=== PATIENT | male | born 1995 | race African-American/Black ===

== ENCOUNTER 2018-06-18 18:12 | Emergency (ER) | payer SELFPAY ==
--- NOTE | 2018-06-18 19:39 | UC ---
Skin Complaint HPI - HPI Summary HPI Summary: 23-year-old male presents with onset of pruritic rash to his upper legs, abdomen , and back. States he woke up with the rash yesterday morning. He has used a topical steroid cream and states that the symptoms have improved some. Denies swelling of his lips, tongue, throat, difficulty breathing, changes in medications, diet, soaps, shampoos, detergents, lotions, colognes, deodorants, or known contact with environmental irritants. - History of Current Complaint Chief Complaint: UCSkin Time Seen by Provider: 06/18/18 19:37 Stated Complaint: RASH Hx Obtained From: Patient Pain Intensity: 0 - Allergy/Home Medications Allergies/Adverse Reactions: Allergies Allergy/AdvReac Type Severity Reaction Status Date / Time No Known Allergies Allergy Unverified 03/30/14 20:06 PMH/Surg Hx/FS Hx/Imm Hx Previously Healthy: Yes - Denies signifcant PMH - Surgical History Surgical History: None Surgery Procedure, Year, and Place: Back surgery - Social History Occupation: Student Lives: Dormitory/Roommates Alcohol Use: Occasionally Substance Use Type: Marijuana Smoking Status (MU): Never Smoked Tobacco - Immunization History Vaccination Up to Date: Yes Review of Systems All Other Systems Reviewed And Are Negative: Yes Constitutional: Negative: Fever, Chills Skin: Positive: Rash Eyes: Positive: Negative ENT: Positive: Negative Respiratory: Negative: Shortness Of Breath, Cough Cardiovascular: Negative: Palpitations, Chest Pain Gastrointestinal: Positive: Negative Genitourinary: Positive: Negative Musculoskeletal: Positive: Negative Neurological: Positive: Negative Is Patient Immunocompromised?: No Physical Exam - Summary Physical Exam Summary: GENERAL APPEARANCE: Well developed, well nourished, alert and cooperative, and appears to be in no acute distress. EYES: Conjunctiva clear. No discharge. Vision is grossly intact. EARS: External auditory canals and tympanic membranes clear, hearing grossly intact. NOSE: No nasal discharge. THROAT: Oral cavity and pharynx normal. No inflammation, swelling, exudate, or lesions. Teeth and gingiva in good general condition. Airway intact. NECK: Neck supple, non-tender without lymphadenopathy. CARDIAC: Normal S1 and S2. No S3, S4 or murmurs. Rhythm is regular. There is no peripheral edema, cyanosis or pallor. Extremities are warm and well perfused. Capillary refill is less than 2 seconds. LUNGS: Clear to auscultation and percussion without rales, rhonchi, wheezing or diminished breath sounds. ABDOMEN: Positive bowel sounds. Soft, nondistended, nontender. No guarding or rebound. No masses or hepatosplenomegally. MUSKULOSKELETAL: ROM intact to all extremities. No joint erythema or tenderness. Normal muscular development. Normal gait. SKIN: Urticarial rash noted to anterior bilateral upper legs and bilateral forearms. Triage Information Reviewed: Yes Vital Signs: Initial Vital Signs Temp 97.5 F 06/18/18 18: Pulse 77 06/18/18 18:23 Resp 18 06/18/18 18:23 BP 116/74 06/18/18 18: Pulse Ox 99 06/18/18 18: Vital Signs Reviewed: Yes Course/Dx - Course Course Of Treatment: 23-year-old male presents with onset of pruritic rash to his upper legs, abdomen, and back. States he woke up with the rash yesterday morning. He has used a topical steroid cream and states that the symptoms have improved some. Denies swelling of his lips, tongue, throat, difficulty breathing, changes in medications, diet, soaps, shampoos, detergents, lotions, colognes, deodorants, or known contact with environmental irritants. Afebrile. Vital signs stable. Exam reveals a well-appearing young adult male in no acute distress. Has an urticarial rash to his anterior upper legs and bilateral forearms. There is no swelling of the lips tongue or throat. Airway is intact. Bilateral breath sounds are clear. Will prescribe him prednisone 40 mg daily 3 days and recommend [id number] diphenhydramine as needed for the itching. Is to follow-up with his primary care provider in 3 days if symptoms do not improve. Warning symptoms were reviewed with the patient. He verbalizes understanding and agrees with plan of care. - Differential Diagnoses - Skin Complaint Differential Diagnoses: Allergic Reaction, Local Allergic Reaction - Diagnoses Provider Diagnosis: Dermatitis Discharge - Sign-Out/Discharge Documenting (check all that apply): Patient Departure All imaging exams completed and their final reports reviewed: No Studies - Discharge Plan Condition: Stable Disposition: HOME Prescriptions: predniSONE TAB* [Deltasone 20 MG TAB*] 40 mg PO DAILY #6 tab Patient Education Materials: Dermatitis (ED) Referrals: Jared Alexandre MD [Primary Care Provider] - 3 Days (If no improvement) Additional Instructions: Take prednisone 40 mg (2 tablets) once a day for 3 days. You may use over the counter diphenhydramine (Benadryl) according to direction as needed for itching. This may cause drowsiness. Follow up with your primary care provider in 3 days if no improvement in symptoms. Seek immediate medical attention in the emergency room if you have swelling of the lips, tongue, throat, difficulty breathing, or any worsening of symptoms. - Billing Disposition and Condition Condition: STABLE Disposition: Home
[2018-06-18 21:11] VITALS: BP 115/66
== END 2018-06-18 19:58 | disposition home or self-care (01) ==
LOC: UCEAST 18:12
DX: L30.9 Dermatitis, unspecified (principal)
CPT/HCPCS: 99202; G0463